=== PATIENT | female | born 1975 | race Caucasian/White ===

== ENCOUNTER → 2018-11-21 | Outpatient (CLI) | payer MEDICAID ==
--- NOTE | 2018-11-21 09:12 | RAD ---
EXAM: Pelvic sonogram. HISTORY: Pelvic pain. TECHNIQUE: Transabdominal and transvaginal sonographic imaging of the pelvis was performed. COMPARISON: None. FINDINGS: The uterus measures 9.0 x 4.4 x 4.5 cm. The uterine parenchyma is heterogeneous. No discrete lesion is seen. The endometrial stripe measures 5.9 mm in thickness. The ovaries are normal in size and demonstrate normal blood flow. There is a 1.6 cm suspected complex cyst within the left ovary. There is a small amount of free fluid within the cul-de-sac. There are bilateral adnexal varices. The cervix is heterogeneous and contains suspected small nabothian cysts. IMPRESSION: 1. 1.6 cm complex right ovarian cyst, possibly hemorrhagic in etiology. 2. Heterogeneous cervix containing suspected nabothian cysts. 3. Heterogeneous uterus without a discrete lesion such as a fibroid. 4. Endometrial stripe within normal limits in and thickness for a premenopausal female. 5. Small amount of nonspecific pelvic free fluid. 6. Bilateral adnexal varices. Electronically signed by: Amanda Harrison MD (11/21/2018 9:09 AM) [facility]
== END | disposition home or self-care (01) ==
LOC: US 07:09
PROVIDERS: ATTEND Family Medicine
DX: N83.291 Other ovarian cyst, right side (principal); I86.2 Pelvic varices
CPT/HCPCS: 76830; 76856

== ENCOUNTER → 2020-09-30 | Outpatient (CLI) | payer MEDICAID ==
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
== END ==
LOC: KCIC 15:22
PROVIDERS: ATTEND Family Medicine
DX: S22.32XA Fracture of one rib, left side, initial encounter for closed fracture (principal); R07.81 Pleurodynia; X58.XXXA Exposure to other specified factors, initial encounter; Y93.89 Activity, other specified; Y92.89 Other specified places as the place of occurrence of the external cause; Y99.8 Other external cause status
CPT/HCPCS: 71101